=== PATIENT | female | born 1990 | race Caucasian/White ===

== ENCOUNTER → 2021-01-24 | Day surgery (SDC) | payer BC ==
--- NOTE | 2021-01-27 11:22 | RAD REPORT ---
EXAM DESCRIPTION: US - Breast Core BX w/US Guidance - 01/24/2021 10:47 am CLINICAL HISTORY: ICD R 92.8 COMPARISON: October 02, 2020 ultrasound TECHNIQUE: The risks, benefits alternatives to the procedure were explained to the patient and infor med consent obtained. Skin and subcutaneous tissues anesthetized with lidocaine. Under sonographic guidance, several 14 gauge core samples of the mass within the right breast obtaine d. 2 centimeter specimens taken. Tissue given to pathology. Subsequently a localizing clip was placed into the mass. Patient experienced no immediate complication IMPRESSION: Technically successful ultrasound-guided core biopsy of a solid right breast lesion loca ye at 11 o'clock.
--- NOTE | 2021-01-27 11:23 | RAD REPORT ---
EXAM DESCRIPTION: Ultrasound-guided vacuum assisted breast core biopsy CLINICAL HISTORY: Breast mass ASP AND BX COMPARISON: Follow Up [facility] dated 12/24/2020 FINDINGS: Informed consent was obtained and time-out was performed. The patient's right breast was prepped and draped in the usual sterile fashion. 1% lidocaine was used for local anesthetic purposes. Utilizing aseptic technique and ultrasound guidance, a 20 gauge spinal needle was advanced into the r ight breast lesion. Approximately 15 cc of cloudy brown fluid was aspirated. All collected material was sent for cytology. Patient tolerated procedure well. IMPRESSION: Technically successful ultrasound-guided aspiration of a right breast cyst.
== END ==
LOC: FNA 10:00
PROVIDERS: ATTEND Surgery
DX: N60.01 Solitary cyst of right breast (principal); N63.11 Unspecified lump in the right breast, upper outer quadrant
CPT/HCPCS: 19000; 19083; 88162; 88305

== ENCOUNTER 2021-02-14 07:39 | Day surgery (SDC) | payer BC ==
[2021-02-12 10:15] LABS: Absolute Lymphocytes (CBC) 1.7 K/uL (0.7-4.9); Basophils % 0.9 % (0-1.3); Hematocrit 38.2 % (36.0-45.0); Lymphocytes % 26.4 % (15.3-44.8); MPV 8.1 fL (7.6-11.3); RBC Red Blood Cell Count 4.17 M/uL (3.86-4.86)
[2021-02-14 08:25] VITALS: BP 122/58; TEMP 98.5; O2SAT 98
[2021-02-14 08:26] LABS: Specific Gravity 1.025 (1.005-1.030)
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
== END 2021-02-14 09:34 | disposition home or self-care (01) ==
LOC: PRE 07:39
PROVIDERS: ATTEND Surgery
DX: N63.11 Unspecified lump in the right breast, upper outer quadrant (principal); Z53.8 Procedure and treatment not carried out for other reasons; Z20.822 Contact with and (suspected) exposure to COVID-19
CPT/HCPCS: 85025; 36415; 81025; U0003